=== PATIENT | male | born 1995 | race Caucasian/White ===

== ENCOUNTER 2016-10-24 21:58 | Emergency (ER) | payer BC ==
[~2016-10-24] VITALS: Ht 185.4 cm; Wt 102.0 kg
[2016-10-24 22:05] VITALS: TEMP 36.7; Ht 185.4 cm; Wt 102.0 kg
[2016-10-24] MEDS ORDERED: XYLOCAINE 1%/SOD BICARB 20 ML VIAL INFIL ONE (22:30)
[2016-10-24] MEDS ORDERED: AMOXICILLIN/CLAVULANATE TAB 875 MG TAB PO ONE (22:30)
[2016-10-24] MEDS ORDERED: AMOX875T PO (23:00)
[2016-10-24 23:14] VITALS: BP 158/92; PULSE 98; O2SAT 98
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
== END 2016-10-24 23:15 | disposition home or self-care (01) ==
LOC: C.EDA 22:02
DX: S61.011A Laceration without foreign body of right thumb without damage to nail, initial encounter (principal); Y04.0XXA Assault by unarmed brawl or fight, initial encounter